=== PATIENT | male | born 1965 | race Caucasian/White ===

== ENCOUNTER 2016-12-14 09:51 | Day surgery (SDC) | payer MEDICARE, MEDICAID ==
[~2016-12-14] VITALS: Ht 175.3 cm; Wt 177.8 kg
[~2016-12-14 09:51] MED LIST: BENICAR HCT 12.1 TAB PO; CRESTOR10 MG PO; CYCLOBENZAPRINE10 MG PO; GLIMEPIRIDE 2MG2 MG PO; METFORMIN500 MG PO; METOPROLOL SUCC25 M1 PO; NORCO1 TAB PO; OMEPRAZOLE40 MG PO; PENICILLIN VK500 M1 PO; VOLTAREN75 MG PO
[2016-12-14 10:20] VITALS: BP 136/52
[2016-12-14 10:36] VITALS: BP 136/52
[2016-12-14 10:38] VITALS: BP 126/82
--- NOTE | 2016-12-14 10:43 | Procedure Note ---
Procedure detail Date of procedure: 12/14/16 Anesthesiologist: Max knight CRNA Complications: None Pre-procedure diagnosis: Degenerative disease lumbar spine lumbar radiculopathy symptoms. Post-procedure diagnosis: Same. Indications for procedure: This patient is a morbidly obese 51-year-old white male who continues with low back pain and some bilateral hip and leg radicular symptoms. He has completed physical therapy. He continues to have low back pain so he is not as active. I have counseled him that he needs to diet in addition to aquatic therapy if possible. Given his most recent MRI he does have March degenerative disc space narrowing with facet hypertrophy at L5-S1. I do believe he would benefit from a lumbar epidural steroid injections. If this did not help then proceeding with bilateral facet joint injections. We will also start him on tramadol 50 mg 3 times a day to give him some pain relief. Patient presents for his first lumbar epidural steroid injection at L5-S1 level. Procedure detail: Procedure: Lumbar epidural steroid injection under fluoroscopy Informed consent was obtained and the risks and benefits of the procedure were explained to the patient. The patient was taken to the procedure room and noninvasive monitors placed, including noninvasive blood pressure cuff and pulse oximeter. The back was viewed using C-arm Fluoroscopy and prepped using Betadine as a cleansing solution and the L5-S1 interspace was palpated. Skin and subcutaneous tissues were anesthetized using lidocaine 1.5% and a 25-gauge needle. After this, an 18-gauge Touhy epidural needle was placed into the L5-S1 interspace and advanced using fluoroscopic guidance and loss of resistance to air until the epidural space was encountered. After confirmation of needle placement in the epidural space, with dye, a solution containing lidocaine 1.5%, 4 mL and Depo-Medrol 80 mg were incrementally injected into the lumbar epidural space. The patient tolerated the procedure well with no complications. The patient was observed in the Pain Clinic and then discharged home neurologically intact. Plan and disposition: Patient was reevaluated tenderness post procedure. He is doing quite well. Return to see us in the pain clinic for further evaluation. at [id number]
[2016-12-14 10:48] VITALS: BP 127/70
== END 2016-12-14 10:48 ==
LOC: PM 09:51
PROC: 3E0R33Z Introduction of Anti-inflammatory into Spinal Canal, Percutaneous Approach (ICD-10-PCS; principal; 2016-12-14)
PROC: 3E0R3BZ Introduction of Anesthetic Agent into Spinal Canal, Percutaneous Approach (ICD-10-PCS; 2016-12-14)
DX: M51.16 Intervertebral disc disorders with radiculopathy, lumbar region (principal)
CPT/HCPCS: J1030; Q9966

== ENCOUNTER → 2017-07-08 | Day surgery (SDC) | payer MEDICARE, MEDICAID ==
[~2017-07-08] VITALS: Ht 175.3 cm; Wt 173.3 kg
[2017-07-08 11:40] VITALS: BP 123/48
[2017-07-08 12:02] VITALS: BP 123/48; BP 137/83
--- NOTE | 2017-07-08 12:17 | Procedure Note ---
Procedure detail Date of procedure: 07/08/17 Anesthesiologist: Eliu Alvarado M.D. 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 He does have bilateral facet arthropathy at L4-L5 and L5-S1. We will plan on a lumbar medial branch blocks at L4-L5 and L5-S1 bilaterally today. Procedure detail: Procedure: Bilateral lumbar medial branch blocks/facet joint injections at L4-L5 and L5-S1 Informed consent was obtained and the risk and benefits of the procedure was explained to the patient. The patient was taken to the procedure room. Back was prepped using ChloraPrep. 22-gauge spinal needles were placed into the facet joints of L4-L5 and L5-S1 bilaterally. Needle placement was confirmed with dye. After this we injected 5 mL lidocaine 2 percent and Depo-Medrol 20 mg into each facet joint/medial branch of L4-L5 and L5-S1. We used a total of 80 mg Depo- Medrol for bilateral facet joint/medial branch blocks of L4-L5 and L5-S1. Patient tolerated the procedure well with no complications. Plan and disposition: We will follow-up with this patient 2 weeks. We'll reevaluate his symptoms at that time. at [id number]
[2017-07-08 12:18] VITALS: BP 121/60
== END ==
LOC: PM 06-17 08:15
PROC: 3E0T3BZ Introduction of Anesthetic Agent into Peripheral Nerves and Plexi, Percutaneous Approach (ICD-10-PCS; principal; 2017-07-08)
PROC: 3E0T33Z Introduction of Anti-inflammatory into Peripheral Nerves and Plexi, Percutaneous Approach (ICD-10-PCS; 2017-07-08)
PROC: BR161ZZ Fluoroscopy of Lumbar Facet Joint(s) using Low Osmolar Contrast (ICD-10-PCS; 2017-07-08)
DX: M51.36 Other intervertebral disc degeneration, lumbar region (principal); M12.88 Other specific arthropathies, not elsewhere classified, other specified site; M47.896 Other spondylosis, lumbar region
CPT/HCPCS: J1030; Q9966